=== PATIENT | female | born 1975 | race Caucasian/White ===

== ENCOUNTER 2018-05-29 11:30 | Outpatient (CLI) | payer MEDICAID | END 2018-05-29 14:50 | disposition home or self-care (01) | LOC: OBT 11:30 → L-D 11:30 → OBT 14:50 | DX: O46.8X3 Other antepartum hemorrhage, third trimester (principal); O36.8130 Decreased fetal movements, third trimester, not applicable or unspecified; O09.513 Supervision of elderly primigravida, third trimester; Z3A.30 30 weeks gestation of pregnancy | CPT/HCPCS: 76818 ==

== ENCOUNTER 2018-07-24 11:12 | Outpatient (CLI) | payer MEDICAID | END 2018-07-24 12:26 | disposition home or self-care (01) | LOC: OBT 11:12 → L-D 11:12 → OBT 12:26 | DX: O36.8130 Decreased fetal movements, third trimester, not applicable or unspecified (principal); O36.8330 Maternal care for abnormalities of the fetal heart rate or rhythm, third trimester, not applicable or unspecified; O09.523 Supervision of elderly multigravida, third trimester; Z3A.38 38 weeks gestation of pregnancy | CPT/HCPCS: 76818 ==

== ENCOUNTER 2018-08-03 23:07 | Inpatient (IN) | payer MEDICAID ==
[2018-08-04] MEDS ORDERED: IBUPROFEN 600 MG TAB PO (01:00)
[2018-08-04] MEDS ORDERED: LIDOCAINE 1% (MPF) 30 ML INJ INJ (01:00)
[2018-08-04] MEDS ORDERED: HYDROCODONE/APAP (5/325) TAB PO ×3 (01:00→16:00)
[2018-08-04] MEDS ORDERED: CARBOPROST 250 MCG INJ IM (01:00)
[2018-08-04] MEDS ORDERED: METHYLERGONOVINE 0.2 MG INJ IM (01:00)
[2018-08-04] MEDS ORDERED: ACETAMINOPHEN/CODEINE #3 TAB PO (01:00)
[2018-08-04] MEDS ORDERED: MISOPROSTOL 200 MCG TAB PR (01:00)
[2018-08-04] MEDS ORDERED: OXYTOCIN 30 UNITS/LR 500 ML IV ×2 (01:00)
[2018-08-04] MEDS: LACTATED RINGER'S 1,000 ML IV* ×2 (01:24→06:26)
[2018-08-04 01:35] LABS: ADD MAN DIFF? NO
[2018-08-04 01:37] LABS: BASOPHIL # 0.1 10^3/ul (0.0-0.1); BASOPHILS % 0.4 % (0.0-2.0); EOSINOPHILS # 0.1 10^3/ul (0.0-0.5); EOSINOPHILS % 0.9 % (0.0-7.0); HEMATOCRIT 39.4 % (37.0-47.0); HEMOGLOBIN 13.9 g/dl (12.0-16.0); LYMPHOCYTES % 25.1 % (15.0-51.0); MEAN CORPUSCULAR HEMOGLOBIN 29.5 pg (29.0-33.0); MEAN CORPUSCULAR HGB CONC 35.3 g/dl (32.0-37.0); MEAN CORPUSCULAR VOLUME 83.7 fl (82.0-101.0); MEAN PLATELET VOLUME 9.4 fl (7.4-10.4); MONOCYTE # 0.7 10^3/ul (0.3-0.9); MONOCYTES % 5.9 % (0.0-11.0); NEUTROPHILS % 66.5 % (39.0-77.0); PLATELET COUNT 264 10^3/UL (140-415); RED BLOOD COUNT 4.71 10^6/ul (4.20-5.40); RED CELL DISTRIBUTION WIDTH 13.2 % (11.5-14.5)
[2018-08-04] MEDS: BUTORPHANOL 2 MG INJ IV (02:06)
[2018-08-04 02:11] LABS: INR 0.87; PROTIME 11.9 Sec (11.9-14.9); PT RATIO 0.9
[2018-08-04 03:08] LABS: PARTIAL THROMBOPLASTIN TIME 27.9 Sec (25.0-35.0)
[2018-08-04] MEDS ORDERED: FENTAnyl 2MCG/ML-ROPIV 0.2% 100 ML (05:30)
[2018-08-04] MEDS ORDERED: FENTAnyl 2MCG/ML-ROPIV 0.2% 100 ML BAG EPI (06:30)
[2018-08-04] MEDS ORDERED: NALOXONE (0.4 MG/ML) INJ IV (06:30)
[2018-08-04 07:57] LABS: HEPATITIS B SURFACE ANTIGEN NEGATIVE (NEGATIVE)
[2018-08-04] MEDS: OXYTOCIN 30 UNITS/LR 500 ML IV ×3 (14:21→16:35)
[2018-08-04] MEDS ORDERED: ONDANSETRON 4 MG INJ IV (16:00)
[2018-08-04] MEDS ORDERED: ACETAMINOPHEN 325 MG TAB PO (16:00)
[2018-08-04] MEDS ORDERED: OXYCODONE/ASPIRIN (4.88/325) TAB PO ×2 (16:00)
[2018-08-04] MEDS: BENZOCAINE 20% 56 ML SPRAY TOP (17:41)
[2018-08-04] MEDS: IBUPROFEN 600 MG TAB PO (17:41)
[2018-08-04] MEDS: LANOLIN 7 GM TUBE TOP (17:42)
[2018-08-04] MEDS: DIBUCAINE 1% 30 GM OINT PR (17:42)
[2018-08-04] MEDS: WITCH HAZEL/GLYCERIN PAD PR (17:42)
[2018-08-04 18:40] LABS: RAPID PLASMA REAGIN NONREACTIVE (NR)
[2018-08-04] MEDS: SENNA/DOCUSATE NA (8.6MG/50MG) TAB PO (21:01)
[2018-08-05] MEDS: IBUPROFEN 600 MG TAB PO ×5 (06:00→23:51)
[2018-08-05 08:05] LABS: ADD MAN DIFF? NO
[2018-08-05 08:10] LABS: BASOPHIL # 0.1 10^3/ul (0.0-0.1); BASOPHILS % 0.4 % (0.0-2.0); EOSINOPHILS # 0.1 10^3/ul (0.0-0.5); EOSINOPHILS % 0.7 % (0.0-7.0); HEMATOCRIT 33.1 % (37.0-47.0); HEMOGLOBIN 11.4 g/dl (12.0-16.0); LYMPHOCYTES # 2.9 10^3/ul (0.8-2.9); LYMPHOCYTES % 20.2 % (15.0-51.0); MEAN CORPUSCULAR HEMOGLOBIN 29.6 pg (29.0-33.0); MEAN CORPUSCULAR HGB CONC 34.4 g/dl (32.0-37.0); MEAN PLATELET VOLUME 9.5 fl (7.4-10.4); MONOCYTE # 0.7 10^3/ul (0.3-0.9); MONOCYTES % 4.9 % (0.0-11.0); NEUTROPHIL # 10.4 10^3/ul (1.6-7.5); NEUTROPHILS % 73.2 % (39.0-77.0); PLATELET COUNT 202 10^3/UL (140-415); RED BLOOD COUNT 3.85 10^6/ul (4.20-5.40); RED CELL DISTRIBUTION WIDTH 13.6 % (11.5-14.5)
[2018-08-05 08:10] LABS: WHITE BLOOD COUNT 14.2 10^3/ul (4.8-10.8)
[2018-08-05] MEDS: SENNA/DOCUSATE NA (8.6MG/50MG) TAB PO ×2 (09:10→21:27)
[2018-08-05] MEDS: FOLIC ACID 0.4 MG TAB PO (09:10)
[2018-08-06] MEDS: IBUPROFEN 600 MG TAB PO ×2 (05:40→12:15)
[2018-08-06] MEDS: SENNA/DOCUSATE NA (8.6MG/50MG) TAB PO (09:00)
[2018-08-06] MEDS: FOLIC ACID 0.4 MG TAB PO (09:40)
[2018-08-06] MEDS: MEASLES,MUMPS,RUBELLA VACCINE INJ SC* (09:42)
== END 2018-08-06 15:02 | disposition home or self-care (01) | DRG 775 ==
LOC: OBT 23:07 → L-D 23:07 → PP1 08-04 15:23
PROVIDERS: Obstetrics & Gynecology
PROC: 10E0XZZ Delivery of Products of Conception, External Approach (ICD-10-PCS; principal; 2018-08-04)
PROC: 0HQ9XZZ Repair Perineum Skin, External Approach (ICD-10-PCS; 2018-08-04)
DX: O69.81X0 Labor and delivery complicated by cord around neck, without compression, not applicable or unspecified (principal); O70.0 First degree perineal laceration during delivery; Z3A.40 40 weeks gestation of pregnancy; Z37.0 Single live birth
CPT/HCPCS: 62319; 85025; 85610; 85730; 86592; 86850; 86900; 86901; 87340